=== PATIENT | female | born 1990 | race Caucasian/White ===

== ENCOUNTER 2021-07-28 19:06 | Emergency (ER) | payer OTHER ==
[~2021-07-28] VITALS: Ht 165.1 cm; Wt 82.2 kg
[2021-07-28 20:09] LABS: ABSOLUTE NEUTROPHILS 4.6 thou/uL (1.4-8.2); BASOPHILS 0.5 % (0.0-2.0); EOSINOPHILS 1.1 % (0.0-3.0); HEMATOCRIT 37.5 % (37.0-47.0); HEMOGLOBIN 12.4 gm/dL (12.0-15.0); LYMPHOCYTES 29.3 % (24.0-44.0); MCH 26.9 pg (26.0-34.0); MCHC 33.2 g/dL (28.0-37.0); MCV 81.1 fL (80.0-100.0); MONOCYTES 5.7 % (1.0-8.0); PLATELET COUNT 201 thou/uL (150-400); POLYS 63.4 % (36.0-66.0); RBC 4.63 mil/uL (4.20-5.00); RDW 14.6 % (10.5-14.5); WBC 7.2 thou/uL (4.0-11.0)
[2021-07-28 20:17] LABS: CALCIUM 8.4 mg/dL (8.5-10.1); CREATININE 0.5 mg/dL (0.6-1.0); POTASSIUM 3.7 mmol/L (3.5-5.1)
[2021-07-28 20:24] LABS: APTT 28.2 Seconds (24.5-32.8); INR 1.05; PROTIME 11.4 Seconds (10.5-12.1)
[2021-07-28 20:27] LABS: ALBUMIN 3.5 g/dL (3.4-5.0); TOTAL BILIRUBIN 0.7 mg/dL (0.2-1.0); TOTAL PROTEIN 6.8 g/dL (6.4-8.2)
[2021-07-28 20:28] LABS: D-DIMER < 0.19 ug/mLFEU (0.19-0.50)
[2021-07-28] MEDS ORDERED: VISTARIL 25 MG25 M1 PO (20:41)
[2021-07-28 21:19] VITALS: BP 105/60
--- NOTE | 2021-07-29 09:50 | EKG ---
[address] [address] ELECTROCARDIOGRAM REPORT Name: BRIDGET MUNIZ Room #: [facility] [place]#: [id number] Admission: 07/28/21 Attend Phys: Discharge: 07/28/21 Date of : [birth year] Report #: [id number] [facility] ED Test Date: 2021-07-28 Test Time: 19:42:29 Pat Name: BRIDGET MUNIZ Department: Room: Gender: F [employer]: [place] : 1990 Requested By: Donna Reveles Order Number: [id number] MD: Manuel Reno Measurements Intervals [place] Rate: 60 P: 23 WI: 138 QRS: 16 QRSD: 109 T: 20 QT: 430 QTc: 430 Interpretive Statements Sinus rhythm No previous ECG available for comparison Electronically Signed On 07-29-2021 9:50:03 HYDRO TECHNICIAN by Manuel Reno [email or web address] <ELECTRONICALLY SIGNED> By: Manuel Reno MD 07/29/2150 41 41 Manuel Reno MD /EPI
== END 2021-07-28 21:22 | disposition home or self-care (01) ==
LOC: ER 19:06
PROVIDERS: Nurse Practitioner
DX: F41.9 Anxiety disorder, unspecified (principal); R07.89 Other chest pain